=== PATIENT | male | born 1995 ===

== ENCOUNTER 2018-12-14 21:37 | Emergency (ER) | payer OTHER | END 2018-12-14 22:41 | disposition left against medical advice (07) | LOC: ER 21:39 | DX: T24.009A Burn of unspecified degree of unspecified site of unspecified lower limb, except ankle and foot, initial encounter (principal); Z53.21 Procedure and treatment not carried out due to patient leaving prior to being seen by health care provider; X08.8XXA Exposure to other specified smoke, fire and flames, initial encounter; Y93.89 Activity, other specified; Y92.89 Other specified places as the place of occurrence of the external cause; Y99.8 Other external cause status ==